=== PATIENT | female | born 1955 | race African-American/Black ===

== ENCOUNTER 2022-07-13 17:07 | Inpatient (IN) ==
[2022-07-13] MEDS ORDERED: HYDROmorphone 1 MG/1 ML SYRINGE IV STA (20:57)
[2022-07-13] MEDS ORDERED: PANTOPRAZOLE 40 MG VIAL IV STA (20:57)
[2022-07-13] MEDS ORDERED: ONDANSETRON 4 MG/2 ML VIAL IV STA (20:57)
[2022-07-13] MEDS ORDERED: SODIUM CHLORIDE 0.9% 500 ML IV STA (20:57)
[2022-07-13 21:24] LABS: Basophils % 0.2 % (0.0-0.8); Hematocrit 43.5 VOL% (35.7-47.0); Hemoglobin 14.1 GM/DL (12.0-16.0); Immature Granulocytes % 0.4 %; Immature Granulocytes Absolute 0.05 #; Lymphocytes # 1.2 10*3/uL (1.4-4.0); Lymphocytes % 10.4 % (21.3-54.2); Mean Corpuscular HGB Conc 32.4 GM/DL (32-36); Mean Corpuscular Volume 96.5 FL (87-102); Mean Platelet Volume 10.6 FL (9.6-12.0); Monocytes # 0.4 10*3/uL (0.11-0.8); Monocytes % 3.7 % (1.7-12.7); Neutrophils % 85.3 % (38.7-73.9); Platelet Count 297 T/CUMM (130-400); Red Blood Count 4.51 MC/CUMM (3.8-5.5); Red Cell Distribution Width 12.8 % (9.3-17.3); White Blood Count 11.8 T/CUMM (4-12)
[2022-07-13 21:39] LABS: Mucus,Urine Many /LPF (Occasional); RBC,Urine 5 /HPF (0-4); Squamous Epithelial Cell,Urine Few /HPF (0-10); Urine Appearance Clear (Clear); Urine Color Yellow (Yellow); Urine Specific Gravity > 1.030 (1.001-1.035); Urine pH 5.5 (4.5-8.0)
[2022-07-13 21:40] LABS: Bilirubin,Urine Small mg/dL (Negative); Glucose,Urine (UA) Negative (Negative); Ketones,Urine Trace mg/dL (Negative); Nitrite,Urine Negative (Negative); Protein,Urine 100 mg/dL (Negative)
[2022-07-13 21:41] LABS: Alanine Aminotransferase 21 U/L (13-56); Albumin 4.2 G/DL (3.4-5.0); Alkaline Phosphatase 92 U/L (45-117); Amylase 58 U/L (25-115); Aspartate Amino Transferase 20 U/L (0-37); Blood Urea Nitrogen 12 MG/DL (7-18); Calcium 9.9 MG/DL (8.5-10.1); Carbon Dioxide 25 MMOL/L (21-32); Chloride 113 MMOL/L (98-107); Glucose 137 MG/DL (74-106); Osmolality,Calculated 291.6 MOS/KG (273-304); Potassium 4.1 MMOL/L (3.5-5.1); Sodium 146 MMOL/L (136-145); Total Protein 7.7 G/DL (6.4-8.2)
[2022-07-13 21:41] LABS: Blood, Urine Trace mg/dL (Negative); Urine Urobilinogen 0.2 eU/dL (<2.0)
[2022-07-14] MEDS ORDERED: HYDROmorphone 1 MG/1 ML SYRINGE IV PRN ×3 (00:22→15:39)
[2022-07-14] MEDS ORDERED: ONDANSETRON 4 MG/2 ML VIAL IV PRN ×2 (00:22→15:24)
[2022-07-14] MEDS ORDERED: ACETAMINOPHEN 325 MG TABLET PO PRN (00:22)
[2022-07-14] MEDS: SODIUM CHLORIDE 0.9% 1,000 ML IV SCH ×2 (02:28→11:59)
[2022-07-14 05:08] LABS: Basophils % 0.2 % (0.0-0.8); Hematocrit 35.4 VOL% (35.7-47.0); Hemoglobin 11.3 GM/DL (12.0-16.0); Immature Granulocytes % 0.2 %; Lymphocytes # 1.4 10*3/uL (1.4-4.0); Lymphocytes % 23.3 % (21.3-54.2); Mean Corpuscular HGB Conc 31.9 GM/DL (32-36); Mean Corpuscular Volume 99.2 FL (87-102); Mean Platelet Volume 11.1 FL (9.6-12.0); Monocytes % 10.6 % (1.7-12.7); Neutrophils % 65.7 % (38.7-73.9); Platelet Count 223 T/CUMM (130-400); Red Blood Count 3.57 MC/CUMM (3.8-5.5); Red Cell Distribution Width 13.1 % (9.3-17.3); White Blood Count 6.1 T/CUMM (4-12)
[2022-07-14 05:09] LABS: Immature Granulocytes Absolute 0.01 #; Monocytes # 0.7 10*3/uL (0.11-0.8)
[2022-07-14 05:30] LABS: Albumin 3.2 G/DL (3.4-5.0); Bilirubin,Total 0.6 MG/DL (0.20-1.00); Calcium 8.7 MG/DL (8.5-10.1); Osmolality,Calculated 285.8 MOS/KG (273-304); Potassium 3.7 MMOL/L (3.5-5.1); Total Protein 6.3 G/DL (6.4-8.2)
[2022-07-14] MEDS: PANTOPRAZOLE 40 MG VIAL IV SCH (09:52)
[2022-07-14] MEDS ORDERED: SEVOFLURANE 1 UNIT/15 MINUTE INH ONE ×2 (12:24→15:04)
[2022-07-14] MEDS ORDERED: propofoL 200 MG/20 ML VIAL IV ONE (12:24)
[2022-07-14] MEDS ORDERED: LIDOCAINE 2% 5 ML VIAL ONE (12:24)
[2022-07-14] MEDS ORDERED: DEXAMETHASONE 4 MG/1 ML VIAL ONE (12:24)
[2022-07-14] MEDS ORDERED: ROCURONIUM 50 MG/5 ML VIAL IV ONE ×2 (12:24→14:54)
[2022-07-14] MEDS ORDERED: ONDANSETRON 4 MG/2 ML VIAL ONE (12:24)
[2022-07-14] MEDS ORDERED: fentaNYL 100 MCG/2 ML VIAL ONE ×3 (12:25→14:43)
[2022-07-14] MEDS ORDERED: TISSUE ADHESIVE 1 EACH APPLICATOR TOP ONE (12:29)
[2022-07-14] MEDS ORDERED: BUPIVACAINE MPF 0.5% 30 ML VIAL ONE (12:47)
[2022-07-14] MEDS ORDERED: ceFAZolin 1,000 MG VIAL ONE ×2 (13:24)
[2022-07-14] MEDS ORDERED: hydrALAZINE 20 MG/1 ML VIAL ONE (13:47)
[2022-07-14] MEDS ORDERED: LACTATED RINGERS 1,000 ML IV ONE (14:02)
[2022-07-14] MEDS ORDERED: NEOSTIGMINE 10 MG/10 ML VIAL ONE (14:50)
[2022-07-14] MEDS ORDERED: GLYCOPYRROLATE 0.4 MG/2 ML VIAL ONE (14:50)
[2022-07-14] MEDS ORDERED: ACETAMINOPHEN INJ 1,000 MG/100 ML VIAL IV ONE (14:58)
[2022-07-14] MEDS ORDERED: SUGAMMADEX 200 MG/2 ML VIAL IV ONE (15:04)
[2022-07-14] MEDS ORDERED: diphenhydrAMINE 50 MG/1 ML VIAL IV PRN (15:24)
[2022-07-14] MEDS ORDERED: PROMETHAZINE INJ 25 MG in SODIUM CHLORIDE 0.9% 50 ML IV PRN (15:24)
[2022-07-14] MEDS: MEPERIDINE 25 MG/1 ML VIAL IV PRN ×2 (15:30→15:40)
[2022-07-14] MEDS ORDERED: PROMETHAZINE 25 MG/1 ML VIAL ONE (15:31)
[2022-07-14] MEDS: HYDROmorphone 1 MG/1 ML SYRINGE IV PRN ×2 (18:55→22:20)
[2022-07-14] MEDS ORDERED: ENOXAPARIN 40 MG/0.4 ML SYRINGE SUBCUT SCH (21:00)
[2022-07-15] MEDS: SODIUM CHLORIDE 0.9% 1,000 ML IV SCH ×4 (02:07→23:47)
[2022-07-15] MEDS: HYDROmorphone 1 MG/1 ML SYRINGE IV PRN ×5 (02:49→21:43)
[2022-07-15 05:30] LABS: Basophils % 0.1 % (0.0-0.8); Hematocrit 32.8 VOL% (35.7-47.0); Immature Granulocytes % 0.5 %; Immature Granulocytes Absolute 0.04 #; Lymphocytes # 1.8 10*3/uL (1.4-4.0); Lymphocytes % 24.6 % (21.3-54.2); Mean Corpuscular HGB Conc 30.5 GM/DL (32-36); Mean Corpuscular Volume 101.9 FL (87-102); Mean Platelet Volume 10.7 FL (9.6-12.0); Monocytes # 0.6 10*3/uL (0.11-0.8); Monocytes % 7.7 % (1.7-12.7); Neutrophils % 67.1 % (38.7-73.9); Platelet Count 197 T/CUMM (130-400); Red Blood Count 3.22 MC/CUMM (3.8-5.5); Red Cell Distribution Width 13.5 % (9.3-17.3); White Blood Count 7.5 T/CUMM (4-12)
[2022-07-15 05:48] LABS: Calcium 8.9 MG/DL (8.5-10.1); Osmolality,Calculated 285.7 MOS/KG (273-304); Potassium 3.5 MMOL/L (3.5-5.1)
[2022-07-15] MEDS: ONDANSETRON 4 MG/2 ML VIAL IV PRN ×2 (08:44→12:33)
[2022-07-15] MEDS ORDERED: ACETAMINOPHEN 650 MG SUPP RECTAL PRN (09:21)
[2022-07-15] MEDS: PANTOPRAZOLE 40 MG VIAL IV SCH (09:43)
[2022-07-16] MEDS: HYDROmorphone 1 MG/1 ML SYRINGE IV PRN ×4 (03:25→18:32)
[2022-07-16] MEDS: SODIUM CHLORIDE 0.9% 1,000 ML IV SCH ×2 (05:29→13:23)
[2022-07-16 07:42] LABS: Basophils % 0.1 % (0.0-0.8); Eosinophils # 0.1 10*3/uL (0.0-0.87); Eosinophils % 1.2 % (0.00-10.9); Hematocrit 31.5 VOL% (35.7-47.0); Hemoglobin 9.5 GM/DL (12.0-16.0); Immature Granulocytes % 0.7 %; Immature Granulocytes Absolute 0.05 #; Lymphocytes # 1.4 10*3/uL (1.4-4.0); Lymphocytes % 18.6 % (21.3-54.2); Mean Corpuscular HGB Conc 30.2 GM/DL (32-36); Mean Corpuscular Volume 102.6 FL (87-102); Mean Platelet Volume 10.3 FL (9.6-12.0); Monocytes # 0.5 10*3/uL (0.11-0.8); Neutrophils % 72.4 % (38.7-73.9); Platelet Count 177 T/CUMM (130-400); Red Blood Count 3.07 MC/CUMM (3.8-5.5); Red Cell Distribution Width 13.1 % (9.3-17.3); White Blood Count 7.4 T/CUMM (4-12)
[2022-07-16 07:55] LABS: Calcium 8.4 MG/DL (8.5-10.1); Potassium 3.5 MMOL/L (3.5-5.1)
[2022-07-16] MEDS: PANTOPRAZOLE 40 MG VIAL IV SCH (09:08)
[2022-07-16] MEDS ORDERED: KETOROLAC 15 MG/1 ML VIAL IV SCH (12:30)
[2022-07-16] MEDS ORDERED: SIMETHICONE CHEW 80 MG TABLET PO ONE (20:19)
[2022-07-16] MEDS: BISACODYL 5 MG TABLET PO PRN (20:59)
[2022-07-17] MEDS ORDERED: HYDROmorphone 1 MG/1 ML SYRINGE IM ONE (04:00)
[2022-07-17] MEDS: PANTOPRAZOLE 40 MG VIAL IV SCH (09:51)
[2022-07-17] MEDS: HYDROmorphone 1 MG/1 ML SYRINGE IV PRN ×4 (10:02→23:51)
[2022-07-17] MEDS: SODIUM CHLORIDE 0.9% 1,000 ML IV SCH ×3 (10:42→12:10)
[2022-07-17] MEDS: BISACODYL 5 MG TABLET PO PRN ×2 (17:46→17:48)
[2022-07-17] MEDS: SIMETHICONE CHEW 125 MG TABLET PO PRN (20:20)
[2022-07-18 07:45] LABS: Basophils % 0.2 % (0.0-0.8); Eosinophils # 0.2 10*3/uL (0.0-0.87); Eosinophils % 2.8 % (0.00-10.9); Hematocrit 34.1 VOL% (35.7-47.0); Hemoglobin 10.8 GM/DL (12.0-16.0); Immature Granulocytes % 1.3 %; Immature Granulocytes Absolute 0.08 #; Lymphocytes # 1.5 10*3/uL (1.4-4.0); Lymphocytes % 24.1 % (21.3-54.2); Mean Corpuscular HGB Conc 31.7 GM/DL (32-36); Mean Corpuscular Volume 96.9 FL (87-102); Mean Platelet Volume 10.3 FL (9.6-12.0); Monocytes # 0.5 10*3/uL (0.11-0.8); Monocytes % 7.2 % (1.7-12.7); NRBC # 0.03 10*3/uL; Neutrophils % 64.4 % (38.7-73.9); Platelet Count 214 T/CUMM (130-400); Red Blood Count 3.52 MC/CUMM (3.8-5.5); Red Cell Distribution Width 12.7 % (9.3-17.3); White Blood Count 6.4 T/CUMM (4-12)
[2022-07-18 07:50] LABS: Osmolality,Calculated 275.4 MOS/KG (273-304); Potassium 2.8 MMOL/L (3.5-5.1)
[2022-07-18] MEDS: PANTOPRAZOLE 40 MG VIAL IV SCH (08:59)
[2022-07-18] MEDS: HYDROmorphone 1 MG/1 ML SYRINGE IV PRN ×5 (10:45→21:11)
[2022-07-18] MEDS: carisoprodoL 350 MG TABLET PO PRN ×3 (12:43→21:05)
[2022-07-18] MEDS: POTASSIUM CHLORIDE 20 MEQ TABLET PO PRN ×4 (12:43→18:07)
[2022-07-18] MEDS: SIMETHICONE CHEW 125 MG TABLET PO PRN ×2 (18:06→21:05)
[2022-07-19] MEDS: HYDROmorphone 1 MG/1 ML SYRINGE IV PRN ×2 (00:24→03:31)
[2022-07-19 06:15] LABS: Basophils % 0.2 % (0.0-0.8); Eosinophils # 0.2 10*3/uL (0.0-0.87); Eosinophils % 3.3 % (0.00-10.9); Hematocrit 33.4 VOL% (35.7-47.0); Hemoglobin 10.6 GM/DL (12.0-16.0); Immature Granulocytes % 0.5 %; Immature Granulocytes Absolute 0.03 #; Lymphocytes # 1.8 10*3/uL (1.4-4.0); Mean Corpuscular HGB Conc 31.7 GM/DL (32-36); Mean Corpuscular Volume 97.4 FL (87-102); Mean Platelet Volume 10.6 FL (9.6-12.0); Monocytes # 0.5 10*3/uL (0.11-0.8); Monocytes % 8.3 % (1.7-12.7); Neutrophils % 58.7 % (38.7-73.9); Platelet Count 221 T/CUMM (130-400); Red Blood Count 3.43 MC/CUMM (3.8-5.5); Red Cell Distribution Width 12.9 % (9.3-17.3); White Blood Count 6.1 T/CUMM (4-12)
[2022-07-19 07:01] LABS: Calcium 9.2 MG/DL (8.5-10.1); Potassium 3.3 MMOL/L (3.5-5.1)
[2022-07-19] MEDS: carisoprodoL 350 MG TABLET PO PRN ×2 (08:43→14:25)
[2022-07-19] MEDS: PANTOPRAZOLE 40 MG VIAL IV SCH (08:43)
[2022-07-19] MEDS: POTASSIUM CHLORIDE 20 MEQ TABLET PO PRN ×2 (08:43→11:56)
[2022-07-19 11:30] VITALS: BP 148/89
== END 2022-07-19 15:05 | disposition home or self-care (01) | DRG 337 ==
LOC: N.ED 17:07 → N.EDINP 17:07 → N.3E 07-14 01:41
PROVIDERS: ADMIT Surgery; ATTEND Surgery

== ENCOUNTER 2022-07-20 15:11 | Observation (INO) ==
[2022-07-20] MEDS ORDERED: ONDANSETRON 4 MG/2 ML VIAL IV PRN (15:53)
[2022-07-20] MEDS ORDERED: MORPHINE 2 MG/1 ML SYRINGE IV PRN (15:54)
[2022-07-20] MEDS: LACTATED RINGERS 1,000 ML IV SCH (16:22)
[2022-07-20 16:47] LABS: Calcium 9.3 MG/DL (8.5-10.1); Osmolality,Calculated 276.4 MOS/KG (273-304)
[2022-07-20 17:02] LABS: Basophils % 0.1 % (0.0-0.8); Eosinophils # 0.2 10*3/uL (0.0-0.87); Eosinophils % 2.9 % (0.00-10.9); Hematocrit 36.9 VOL% (35.7-47.0); Hemoglobin 11.6 GM/DL (12.0-16.0); Immature Granulocytes % 0.6 %; Immature Granulocytes Absolute 0.04 #; Lymphocytes # 1.8 10*3/uL (1.4-4.0); Lymphocytes % 26.3 % (21.3-54.2); Mean Corpuscular HGB Conc 31.4 GM/DL (32-36); Mean Corpuscular Volume 98.7 FL (87-102); Mean Platelet Volume 10.6 FL (9.6-12.0); Monocytes # 0.5 10*3/uL (0.11-0.8); Monocytes % 7.3 % (1.7-12.7); Neutrophils % 62.8 % (38.7-73.9); Platelet Count 278 T/CUMM (130-400); Red Blood Count 3.74 MC/CUMM (3.8-5.5); Red Cell Distribution Width 13.2 % (9.3-17.3)
[2022-07-20] MEDS: DOCUSATE SODIUM 100 MG CAPSULE PO SCH (20:50)
[2022-07-20] MEDS: POLYETHYLENE GLYCOL POWDER 17 GM PACK PO SCH (20:51)
[2022-07-20] MEDS: oxyCODONE/ACETAMINOPHEN 5-325 MG TABLET PO PRN (20:51)
[2022-07-21] MEDS: LACTATED RINGERS 1,000 ML IV SCH ×2 (00:01→06:22)
[2022-07-21] MEDS: DOCUSATE SODIUM 100 MG CAPSULE PO SCH (08:44)
[2022-07-21] MEDS: POLYETHYLENE GLYCOL POWDER 17 GM PACK PO SCH (08:44)
[2022-07-21] MEDS ORDERED: MAGNESIUM HYDROXIDE SUSP 30 ML UDCUP PO ONE (08:45)
[2022-07-21] MEDS ORDERED: oxyCODONE/ACETAMINOPHEN 5-325 MG TABLET PO PRN (09:03)
[2022-07-21] MEDS ORDERED: hydrALAZINE 20 MG/1 ML VIAL IV PRN (10:06)
[2022-07-21] MEDS: oxyCODONE/ACETAMINOPHEN 5-325 MG TABLET PO PRN (11:12)
[2022-07-21 15:12] VITALS: BP 171/92
== END 2022-07-21 17:29 | disposition home or self-care (01) ==
LOC: N.3E
PROVIDERS: ADMIT Surgery; ATTEND Surgery